=== PATIENT | male | born 1965 | race Caucasian/White ===

== ENCOUNTER 2017-11-21 10:13 | Emergency (ER) | payer OTHER ==
[2017-11-21 10:21] VITALS: BP 142/85; PULSE 99; TEMP 99.3; BMI 29.7
[2017-11-21] MEDS ORDERED: IBUPROFEN 400 MG TABLET (FP) PO ONE (10:54)
[2017-11-21] MEDS ORDERED: ALBUTEROL SO4 0.083% IH SOL 2.5 MG/3 ML VIAL.NEB. NEB ONE (10:54)
--- NOTE | 2017-11-21 11:14 | PDOC ---
History of Present Illness - General Chief Complaint: Cold Symptoms Stated Complaint: FEVER Time Seen by Provider: 11/21/17 10:37 History Source: Reflexologist Used ([employer] [id number]) Exam Limitations: Language Barrier - History of Present Illness Initial Comments: 11/21/17 11:08 52 yr male with cough fever for 4 days [place] from [place]. Pt states body aches neg nvd, increased thirst and increased urination. Pt has NIDDM taking his medications. no sick contacts works as a sales route driver helper. japanese interpreter used. 11/21/17 11:16 Severity: reports: mild Past History - Past Medical History Allergies/Adverse Reactions: Allergies Allergy/AdvReac Type Severity Reaction Status Date / Time No Known Drug Allergies Allergy Verified 11/21/17 11:48 plasma Allergy Uncoded 11/21/17 10:17 Home Medications: Ambulatory Orders Metformin HCl 500 mg PO BID 02/08/16 Albuterol Sulfate Inhaler - [Ventolin HFA Inhaler -] 1 - 2 inh PO Q4H #1 inhaler 11/21/17 COPD: No DVT: No Diabetes: Yes HTN: Yes Hypercholesterolemia: Yes - Surgical History Cholecystectomy: Yes - Immunization History Immunization Up to Date: Yes - Suicide/Smoking/Psychosocial Hx Smoking History: Never smoked Have you smoked in the past 12 months: No Information on smoking cessation initiated: No Hx Alcohol Use: No Drug/Substance Use Hx: No Substance Use Type: None Respiratory Specific PMHX - Complaint Specific PMHX Angina: No Bronchitis: No Pneumonia: No Pulmonary Embolus: No TB (Tuberculosis): No Review of Systems - Review of Systems Able to Perform ROS?: Yes Is the patient limited Bolivian proficient: No Constitutional: Yes: Symptoms Reported, Fever Respiratory: Yes: Cough : Yes: Frequency Musculoskeletal: No: Symptoms Reported Integumentary: No: Symptoms Reported Neurological: No: Symptoms reported *Physical Exam - Vital Signs Last Vital Signs Temp Pulse Resp BP Pulse Ox 99.3 F 99 H 18 142/85 100 11/21/17 10:18 11/21/17 10:18 11/21/17 10:18 11/21/17 10:18 11/21/17 10:18 - Physical Exam General Appearance: Yes: Nourished, Appropriately Dressed HEENT: positive: EOMI, CADY, Normal ENT Inspection, TMs Normal, Pharynx Normal Neck: positive: Supple. negative: Tender, Lymphadenopathy (R), Lymphadenopathy (L) Respiratory/Chest: positive: Lungs Clear, Normal Breath Sounds, Rhonchi, Wheezing (exp ). negative: Chest Tender Gastrointestinal/Abdominal: positive: Normal Bowel Sounds, Soft Musculoskeletal: positive: Normal Inspection Extremity: positive: Normal Capillary Refill, Normal Inspection, Normal Range of Motion Integumentary: positive: Normal Color, Dry, Warm Neurologic: positive: Fully Oriented, Alert, Normal Mood/Affect, Normal Response , Motor Strength 03/06 ED Treatment Course - RADIOLOGY Radiology Studies Ordered: Category Date Time Status CHEST PA & LAT [RAD] Stat Radiology 11/21/17 10:54 Ordered Medical Decision Making - Medical Decision Making 11/21/17 11:10 cc: cough fever body aches 4 days [place]illin from [place] c/o fever will check flu swab CXR 11/21/17 11:20 11/21/17 11:38 flu is negative CXR is negative will give albuterol inhaler pt is already on day 3 of ampicillin most likely viral bronchitis *DC/Admit/Observation/Transfer Diagnosis at time of Disposition: Bronchitis - Discharge Dispostion Disposition: HOME Condition at time of disposition: Good - Prescriptions Prescriptions: Albuterol Sulfate Inhaler - [Ventolin HFA Inhaler -] 1 - 2 inh PO Q4H #1 inhaler - Referrals Referrals: Kofi Etienne MD [Primary Care Provider] - - Patient Instructions Additional Instructions: use the inhaler as prescribed take ibuprofen as directed for fever or body aches drink pleanty of fluids and increase vitamin C and zinc in your diet follow with your doctor for follow up this week use el inhalador segn lo prescrito randolph ibuprofeno segn lo indicado para la fiebre o nabor en el cuerpo Shavonne abundante cantidad de lquidos y aumente la vitamina C y el zinc en de la cruz dieta siga con de la cruz mdico para el seguimiento esta semana usted no tiene neumona o gripe, es muy probable que tenga tiki bronquitis viral que necesita un inhalador de albuterol Print Language: INDONESIAN - Post Discharge Activity
== END 2017-11-21 12:29 | disposition home or self-care (01) ==
LOC: JERFT 10:13
PROC: 3E0F7GC Introduction of Other Therapeutic Substance into Respiratory Tract, Via Natural or Artificial Opening (ICD-10-PCS; principal; 2017-11-21)
DX: J40 Bronchitis, not specified as acute or chronic (principal); I10 Essential (primary) hypertension; E78.00 Pure hypercholesterolemia, unspecified; E11.9 Type 2 diabetes mellitus without complications; Z79.84 Long term (current) use of oral hypoglycemic drugs
CPT/HCPCS: 71046-TC; 82962; 87804; 94640; 99281-25

== ENCOUNTER 2018-04-19 06:13 | Emergency (ER) | payer OTHER ==
[2018-04-19 06:59] VITALS: PULSE 75; TEMP 97.6; BMI 28.5
[2018-04-19] MEDS ORDERED: SODIUM CHLORIDE 0.9% 1000 ML INFUS.BAG IV ONE (07:18)
[2018-04-19] MEDS ORDERED: ONDANSETRON 4 MG/2 ML VIAL IVPUSH ONE (07:18)
[2018-04-19] MEDS ORDERED: morphine CARPU-JECT 4 MG/1 ML DISP.SYRIN IVPUSH ONE (07:18)
--- NOTE | 2018-04-19 07:18 | PDOC ---
Attending Attestation - HPI HPI: 04/19/18 08:44 The patient is a 53 year old male with a significant PMH of DM and asthma who presents to the emergency department with left lower quadrant abdominal pain for 4 hours. The patient reports that he woke up this morning at about 4 am experiencing severe non- radiating lower left quadrant abdominal pain. The patient states that he has never had pain like this in the past. The patient also reports associated nausea and vomiting. The patient denies any history of a colonoscopy. He denies fever, chills, diarrhea, constipation or urinary symptoms. He denies any chest pain, shortness of breath, headache and dizziness.The patient denies any other complaints. PCP: Griselda Kraus [place] Documentation prepared by Isabel Naik, acting as neuropsychology medical consultant for Kieran Au MD. - Physicial Exam PE: 04/19/18 08:44 Vitals: Triage vital signs reviewed General Appearance: No acute distress, well nourished, well developed Head: Atraumatic Chest Wall: Nontender Cardiac: Regular rate and rhythm, no murmurs, no rubs, no gallops Lungs: Clear to auscultation bilateral, good air movement bilaterally Abdomen:(+)10/10 LLQ pain. Soft, nondistended, normal bowel sounds, nontender to palpation Genitourinary: Rectal: Exam deferred Extremities: Full range of motion to all extremities, no cyanosis, clubbing, or edema Skin: Warm and dry, no rashes or lesions, no rash, no petechiae Psych: Normal mood, normal affect - Medical Decision Making 04/19/18 08:44 The patient is a 53 year old male with a significant PMH of DM and asthma who presents to the emergency department with left lower quadrant abdominal pain for 4 hours. The patient will get medication for his pain, fluids, and a CT. <Isabel Naik - Last Filed: 04/19/18 08:44> - Resident Resident Name: Dontrell Herring - ED Attending Attestation I have performed the following: I have examined & evaluated the patient, The case was reviewed & discussed with the resident, I agree w/resident's findings & plan, Exceptions are as noted - Medical Decision Making Left lower quadrant abdominal pain. We'll check labs hydrate pain medication CAT scan of the pelvis observed and reassessed Reevaluation no acute findings on CT mild hematuria patient's repeat abdominal exam benign tenderness has resolved Most likely history examination consistent with passed renal stone strict abdominal pain return instructions discussed patient's patient provided with urology follow-up Findings, follow-up and strict return instructions discussed with patient. <Kieran Au - Last Filed: 04/19/18 15:27>
--- NOTE | 2018-04-19 07:30 | PDOC ---
History of Present Illness - General History Source: Patient - History of Present Illness Travel History: No Initial Comments: 04/19/18 07:22 53 year old male with a hx of DM and asthma presents to the hospital for left lower quadrant abdominal pain of several hour duration. He states that he woke up at 4am with severe non-radiating LLQ abdoinal pain 10/10 in severity. He has never experienced this pain before. Reports associated non-bloody/non-bilious nausea/vomiting. Patient has never had a colonoscopy. Denies diarrhea, states that his stools are solid. Denies chest pain, shortness of breath, fevers, chills. Allergies: none Smoking: none Alcohol: none Drugs: none PCP: Griselda Hernandez Timing/Duration: reports: constant Quality: reports: severe Abdominal Pain Onset Location: reports: LLQ <Dontrell Herring - Last Filed: 04/19/18 07:34> <Kieran Au - Last Filed: 04/19/18 12:25> - General Chief Complaint: Pain Stated Complaint: STOMACH PAIN Time Seen by Provider: 04/19/18 07:10 Past History - Past Medical History COPD: No DVT: No Diabetes: Yes HTN: Yes Hypercholesterolemia: Yes - Surgical History Cholecystectomy: Yes - Immunization History Immunization Up to Date: Yes - Suicide/Smoking/Psychosocial Hx Smoking History: Never smoked Have you smoked in the past 12 months: No Information on smoking cessation initiated: No Hx Alcohol Use: No Drug/Substance Use Hx: No Substance Use Type: None <Dontrell Herring - Last Filed: 04/19/18 07:34> <Kieran Au - Last Filed: 04/19/18 12:25> - Past Medical History Allergies/Adverse Reactions: Allergies Allergy/AdvReac Type Severity Reaction Status Date / Time No Known Allergies Allergy Verified 04/19/18 07:01 Home Medications: Ambulatory Orders metFORMIN HCL [Metformin HCl] 500 mg PO BID 02/08/16 Review of Systems - Review of Systems Able to Perform ROS?: Yes Is the patient limited Moroccan proficient: Yes Constitutional: No: Fever Respiratory: No: Cough, Shortness of Breath, Wheezing Cardiac (ROS): No: Chest Pain, Irregular Heart Rate, Chest Tightness ABD/GI: Yes: Symptoms Reported, Vomiting. No: Diarrhea, Nausea, Rectal Bleeding : No: Dysuria <CharleethomasDontrell - Last Filed: 04/19/18 07:34> *Physical Exam - Vital Signs Last Vital Signs Temp Pulse Resp BP Pulse Ox 97.6 F 75 19 110/69 100 04/19/18 06:56 04/19/18 06:56 04/19/18 06:56 04/19/18 06:56 04/19/18 06:56 - Physical Exam Comments: 04/19/18 07:32 GENERAL: A&Ox3, no acute distress EYES: PERRLA, EOMI ENT: Moist mucus membranes NECK: No JVD LUNGS: CTA, no wheezes HEART: RRR, no murmurs ABDOMEN: Soft, mild tenderness to palpation noted, BS present MUSCULOSKELETAL: No CVA Tenderness EXTREMITIES: 2+ pulses, no edema. NEUROLOGICAL: Cranial nerves II-XII intact. <CharleethomasDontrell - Last Filed: 04/19/18 07:34> - Vital Signs Last Vital Signs Temp Pulse Resp BP Pulse Ox 97.6 F 75 19 110/69 100 04/19/18 06:56 04/19/18 06:56 04/19/18 06:56 04/19/18 06:56 04/19/18 06:56 <Kieran Au - Last Filed: 04/19/18 12:25> ED Treatment Course - LABORATORY CBC & Chemistry Diagram: 04/19/18 08:00 04/19/18 08:00 - ADDITIONAL ORDERS Additional order review: Laboratory Results 04/19/18 04/19/18 08:44 08:00 Sodium 133 L Potassium 5.6 H D Chloride 101 Carbon Dioxide 24 Anion Gap 8 BUN 17 D Creatinine 1.1 Creat Clearance w eGFR > 60 Random Glucose 264 H D Calcium 9.0 Total Bilirubin 0.5 AST 43 H D ALT 80 H D Alkaline Phosphatase 205 H D Total Protein 7.5 Albumin 3.8 Urine Color Yellow Urine Appearance Clear Urine pH 5.0 Ur Specific Wellman 1.029 Urine Protein Negative Urine Glucose (UA) 3+ H Urine Ketones Trace H Urine Blood 3+ H Urine Nitrite Negative Urine Bilirubin Negative Urine Urobilinogen Negative Ur Leukocyte Esterase Negative Urine WBC (Auto) 2 Urine RBC (Auto) 181 Urine Mucus Rare 04/19/18 08:00 RBC 5.29 MCV 88.2 MCHC 34.2 RDW 13.1 MPV 9.9 Neutrophils % 62.5 Lymphocytes % 31.1 D Monocytes % 5.4 Eosinophils % 0.4 Basophils % 0.6 - RADIOLOGY Radiology Studies Ordered: Category Date Time Status ABDOMEN & PELVIS CT WITH CONTR [CT] Stat CT Scan 04/19/18 07:19 Completed - Medications Given in the ED: ED Medications Discontinued Medications Generic Name Dose Route Start Last Admin Trade Name Katie PRN Reason Stop Dose Admin Morphine Sulfate 4 mg 04/19/18 07:18 04/19/18 08:40 Morphine Injection - IVPUSH 04/19/18 07:19 4 mg ONCE ONE Administration Ondansetron HCl 4 mg 04/19/18 07:18 04/19/18 08:41 Zofran Injection IVPUSH 04/19/18 07:19 4 mg ONCE ONE Administration Sodium Chloride 2,000 ml 04/19/18 07:18 04/19/18 08:41 Normal Saline - IV 04/19/18 07:19 2,000 ml ONCE ONE Administration <Kieran Au - Last Filed: 04/19/18 12:25> Medical Decision Making - Medical Decision Making 04/19/18 07:32 53 yo male with a hx of DM and asthma presented for acute onset LLQ abdominal pain and vomiting DDx: diverticulitis, colitis, hernia, gastroenteritis -CBC -CMP -UA -CT abd/pelvis w/ IV contrast -1L NS bolus -zofran -morphine 4mg for pain -will re-evaluate <Dontrell Herring - Last Filed: 04/19/18 07:34> *DC/Admit/Observation/Transfer <Dontrell Herring - Last Filed: 04/19/18 07:34> - Discharge Dispostion Decision to Admit order: No <Kieran Au - Last Filed: 04/19/18 12:25> Diagnosis at time of Disposition: Abdominal pain Qualifiers: Abdominal location: left lower quadrant Qualified Code(s): R10.32 - Left lower quadrant pain - Discharge Dispostion Condition at time of disposition: Fair - Referrals Referrals: Gustavo Hoyt MD [Staff Physician] - - Patient Instructions Printed Discharge Instructions: DI for Abdominal Pain-Adult Additional Instructions: Your CAT scan did not show any serious surgical issues.There was blood in her urine and he may have passed a kidney stone. Please follow-up with urology this week. Drink plenty of fluids. Return to the emergency Department for severe worsening symptoms or for any concerns.
[2018-04-19] MEDS ORDERED: MORPHINE SULFATE 2 MG/ML VIAL ONE (08:15)
[2018-04-19] MEDS ORDERED: ONDANSETRON 4 MG/2 ML VIAL ONE (08:16)
[2018-04-19 08:17] LABS: BASO % 0.6 % (0-2.0); EOS % 0.4 % (0-4.5); HEMATOCRIT 46.6 % (35.4-49); HEMOGLOBIN 15.9 GM/dL (11.7-16.9); LYMPH % 31.1 % (8-40); MCH 30.2 pg (25.7-33.7); MCHC 34.2 g/dl (32.0-35.9); MEAN CELL VOLUME 88.2 fl (80-96); MEAN PLT VOLUME 9.9 fl (7.5-11.1); MONO % 5.4 % (3.8-10.2); NEUT % 62.5 % (42.8-82.8); PLATELET COUNT 216 K/MM3 (134-434); RBC 5.29 M/mm3 (4.00-5.60); RDW 13.1 % (11.9-15.9); WHITE BLOOD COUNT 6.6 K/mm3 (4.0-10.0)
[2018-04-19 08:53] LABS: URINE APPEARANCE CLEAR; URINE BILIRUBIN NEGATIVE (<2.0 mg/dL); URINE COLOR YELLOW; URINE GLUCOSE (UA) 3+ (NEGATIVE); URINE KETONE TRACE (NEGATIVE); URINE LEUK ESTERASE NEGATIVE (NEGATIVE); URINE NITRITE NEGATIVE (NEGATIVE); URINE PROTEIN NEGATIVE (NEGATIVE); URINE UROBILINOGEN NEGATIVE mg/dL (0.2-1.0)
[2018-04-19 09:03] LABS: ALBUMIN 3.8 g/dl (3.4-5.0); ALK PHOS 205 U/L (45-117); ANION GAP 8 (8-16); BILIRUBIN,TOTAL 0.5 mg/dL (0.2-1.0); BLOOD UREA NITROGEN 17 mg/dL (7-18); CHLORIDE 101 mmol/L (98-107); CO2 24 mmol/L (21-32); CREATININE 1.1 mg/dL (0.7-1.3); GLUCOSE,RANDOM 264 mg/dL (74-106); SGPT/ALT 80 U/L (12-78); SODIUM 133 mmol/L (136-145); TOT PROT 7.5 g/dl (6.4-8.2)
[2018-04-19 09:16] LABS: POTASSIUM 5.6 mmol/L (3.5-5.1); SGOT/AST 43 U/L (15-37)
[2018-04-19 09:23] LABS: URINE MUCUS RARE
[2018-04-19 12:32] VITALS: BP 122/75
== END 2018-04-19 13:14 | disposition home or self-care (01) ==
LOC: JER 06:13
PROC: 3E033GC Introduction of Other Therapeutic Substance into Peripheral Vein, Percutaneous Approach (ICD-10-PCS; principal; 2018-04-19)
PROC: 3E033NZ Introduction of Analgesics, Hypnotics, Sedatives into Peripheral Vein, Percutaneous Approach (ICD-10-PCS; 2018-04-19)
DX: R10.32 Left lower quadrant pain (principal); I10 Essential (primary) hypertension; E78.00 Pure hypercholesterolemia, unspecified; E11.9 Type 2 diabetes mellitus without complications; J45.909 Unspecified asthma, uncomplicated; Z79.84 Long term (current) use of oral hypoglycemic drugs
CPT/HCPCS: 36415; 74177-TC; 80053; 81003; 81015; 85025; 96374; 96375; 99284-25; J7030

== ENCOUNTER 2018-12-14 09:38 | Emergency (ER) | payer OTHER ==
[2018-12-14 09:53] VITALS: BP 141/90; PULSE 89; TEMP 98.3; BMI 30.2
--- NOTE | 2018-12-14 11:21 | PDOC ---
History of Present Illness - General Chief Complaint: Eye Problem Stated Complaint: EYE PAIN Time Seen by Provider: 12/14/18 10:49 History Source: Patient Exam Limitations: Language Barrier (telephone language line used for history physical and discharge planning) - History of Present Illness Initial Comments: 12/14/18 11:22 Patient complains of twitching to his left eyelid that started yesterday that was "annoying him". Denies trauma, denies any discharge, denies any visual changes. Is diabetic but states blood sugars are well-controlled and he checks them daily. No other muscle fasciculations Timing/Duration: unsure Severity: mild Associated Symptoms: reports: denies symptoms Past History - Travel Traveled outside of the country in the last 30 days: No Close contact w/someone who was outside of country & ill: No - Past Medical History Allergies/Adverse Reactions: Allergies Allergy/AdvReac Type Severity Reaction Status Date / Time No Known Allergies Allergy Verified 12/14/18 09:50 Home Medications: Ambulatory Orders metFORMIN HCL [Metformin HCl] 500 mg PO BID 02/08/16 COPD: No DVT: No Diabetes: Yes HTN: Yes Hypercholesterolemia: Yes - Surgical History Cholecystectomy: Yes - Immunization History Immunization Up to Date: Yes - Suicide/Smoking/Psychosocial Hx Smoking History: Never smoked Have you smoked in the past 12 months: No Hx Alcohol Use: No Drug/Substance Use Hx: No Substance Use Type: None Review of Systems - Review of Systems Able to Perform ROS?: Yes Is the patient limited Czech proficient: Yes Constitutional: Yes: Symptoms Reported, See HPI. No: Chills, Fever, Loss of Appetite, Malaise HEENTM: Yes: Symptoms Reported, See HPI, Other (states left eyelid is been twitching on and off since yesterday evening). No: Eye Pain, Blurred Vision, Tearing, Recent change in vision, Double Vision Respiratory: Yes: See HPI. No: Symptoms reported, Cough Cardiac (ROS): No: Symptoms Reported ABD/GI: No: Symptoms Reported Musculoskeletal: Yes: See HPI. No: Symptoms Reported, Back Pain, Muscle Pain, Muscle Weakness Integumentary: No: Symptoms Reported All Other Systems: Reviewed and Negative *Physical Exam - Vital Signs Last Vital Signs Temp Pulse Resp BP Pulse Ox 98.3 F 89 19 141/90 96 12/14/18 09:50 12/14/18 09:50 12/14/18 09:50 12/14/18 09:50 12/14/18 09:50 - Physical Exam General Appearance: Yes: Nourished, Appropriately Dressed HEENT: positive: CADY, Normal ENT Inspection, Normal Voice, Symmetrical, TMs Normal, Pharynx Normal Neck: positive: Supple. negative: Tender, Lymphadenopathy (R) Respiratory/Chest: positive: Lungs Clear Gastrointestinal/Abdominal: positive: Tender, Soft. negative: Normal Bowel Sounds Extremity: positive: Normal Capillary Refill, Normal Inspection, Normal Range of Motion Integumentary: positive: Normal Color, Dry, Warm Neurologic: positive: executive officer II-XII NML intact, Fully Oriented, Alert, Normal Mood/ Affect, Normal Response, Motor Strength 5/5 Moderate Sedation - Procedure Monitoring Vital Signs: Procedure Monitoring Vital Signs Temperature 98.3 F 12/14/18 09:50 Pulse Rate 89 12/14/18 09:50 Respiratory Rate 12/14/18 09:50 Blood Pressure 141/90 12/14/18 09:50 O2 Sat by Pulse Oximetry (%) 96 12/14/18 09:50 *DC/Admit/Observation/Transfer Diagnosis at time of Disposition: Eye muscle twitches - Discharge Dispostion Disposition: HOME Condition at time of disposition: Stable Decision to Admit order: No - Referrals Referrals: Namita Bautista MD [Primary Care Provider] - - Patient Instructions Printed Discharge Instructions: DI for Eye Pain - Post Discharge Activity
== END 2018-12-14 11:31 | disposition home or self-care (01) ==
LOC: JERFT 09:38
DX: H02.89 Other specified disorders of eyelid (principal); G25.89 Other specified extrapyramidal and movement disorders; I10 Essential (primary) hypertension; E78.00 Pure hypercholesterolemia, unspecified; E11.9 Type 2 diabetes mellitus without complications; Z79.84 Long term (current) use of oral hypoglycemic drugs
CPT/HCPCS: 99281-25

== ENCOUNTER 2020-10-05 10:57 | Emergency (ER) | payer OTHER ==
[2020-10-05 11:37] VITALS: BMI 29.7
[2020-10-05] MEDS ORDERED: ACETAMINOPHEN 500 MG TABLET (FP) PO ONE (11:54)
[2020-10-05] MEDS ORDERED: ACETAMINOPHEN 325 MG TABLET (FP) PO ONE (12:48)
[2020-10-05] MEDS ORDERED: ACETAMINOPHEN 325 MG TABLET (FP) ONE (13:21)
[2020-10-05 14:07] LABS: BASO % 0.3 % (0-2.0); EOS % 0.2 % (0-4.5); HEMATOCRIT 43.7 % (35.4-49); HEMOGLOBIN 14.5 GM/dL (11.7-16.9); LYMPH % 32.5 % (8-40); MCH 29.5 pg (25.7-33.7); MCHC 33.1 g/dl (32.0-35.9); MEAN CELL VOLUME 89.1 fl (80-96); MEAN PLT VOLUME 9.1 fl (7.5-11.1); MONO % 10.9 % (3.8-10.2); NEUT % 56.1 % (42.8-82.8); PLATELET COUNT 151 K/MM3 (134-434); RDW 13.1 % (11.9-15.9); WHITE BLOOD COUNT 3.9 K/mm3 (4.0-10.0)
[2020-10-05 14:15] LABS: INR 1.15 (0.83-1.09); PROTHROMBIN TIME (PATIENT) 13.9 SEC (9.7-13.0)
[2020-10-05 14:18] LABS: ACTIVATED PTT 30.3 SECONDS (25.2-36.5)
[2020-10-05 14:21] LABS: CHLORIDE 99 mmol/L (98-107); POTASSIUM 4.5 mmol/L (3.5-5.1); SODIUM 136 mmol/L (136-145)
[2020-10-05 14:24] LABS: ALBUMIN 3.7 g/dl (3.4-5.0); ANION GAP 8 MMOL/L (8-16); CALCIUM 8.6 mg/dL (8.5-10.1); CO2 28 mmol/L (21-32)
[2020-10-05 14:25] LABS: BLOOD UREA NITROGEN 10.7 mg/dL (7-18); GLUCOSE,RANDOM 197 mg/dL (74-106); MAGNESIUM 1.9 mg/dL (1.8-2.4)
[2020-10-05 14:26] LABS: SGPT/ALT 90 U/L (13-61)
[2020-10-05 14:27] LABS: SGOT/AST 48 U/L (15-37)
[2020-10-05 14:28] LABS: BILIRUBIN,TOTAL 0.6 mg/dL (0.2-1); TOT PROT 7.2 g/dl (6.4-8.2)
[2020-10-05 14:29] LABS: ALK PHOS 130 U/L (45-117); LDH 137 U/L (87-246)
[2020-10-05 14:32] LABS: N-TERMINAL BNP 34.2 pg/ml (5-125)
[2020-10-05] MEDS ORDERED: SODIUM CHLORIDE 1,000 ML IV ONE (14:57)
[2020-10-05 16:46] VITALS: BP 100/61; PULSE 88; TEMP 98.9
== END 2020-10-05 16:51 | disposition home or self-care (01) ==
LOC: JER 10:57
PROC: 3E0337Z Introduction of Electrolytic and Water Balance Substance into Peripheral Vein, Percutaneous Approach (ICD-10-PCS; principal; 2020-10-05)
DX: B34.9 Viral infection, unspecified (principal)
CPT/HCPCS: 36415; 71045-TC-FY; 80053; 82550; 82728; 83605; 83615; 83735; 83880; 84484; 85025; 85379; 85384; 85610; 85730; 87804; 93005; 93010; 99284-25; C9803; U0003

== ENCOUNTER 2023-10-29 06:54 | Emergency (ER) | payer OTHER ==
[2023-10-29 07:09] VITALS: BP 101/65; RESP 18; BMI 28.8
[2023-10-29] MEDS ORDERED: ACETAMINOPHEN 1000 MG/100 ML BAG IVPB ONE (07:53)
[2023-10-29] MEDS ORDERED: SODIUM CHLORIDE 1,000 ML IV STA (07:53)
[2023-10-29] MEDS ORDERED: ACETAMINOPHEN INJECTION 100 ML IVPB ONE (07:58)
[2023-10-29 08:07] LABS: BASO % 0.5 % (0-2.0); EOS % 0.6 % (0-4.5); HEMATOCRIT 44.6 % (35.4-49); HEMOGLOBIN 15.1 GM/dL (11.7-16.9); LYMPH % 16.6 % (8-40); MCH 30.2 pg (25.7-33.7); MCHC 33.8 g/dl (32.0-35.9); MEAN CELL VOLUME 89.5 fl (80-96); MEAN PLT VOLUME 8.7 fl (7.5-11.1); MONO % 8.5 % (3.8-10.2); NEUT % 73.8 % (42.8-82.8); PLATELET COUNT 204 10^3/uL (134-434); RBC 4.99 M/mm3 (4.00-5.60); RDW 13.6 % (11.9-15.9); WHITE BLOOD COUNT 9.7 K/mm3 (4.0-10.0)
[2023-10-29 08:22] LABS: POTASSIUM 4.2 mmol/L (3.5-5.1)
[2023-10-29 08:24] LABS: ALBUMIN 3.4 g/dl (3.4-5.0); BLOOD UREA NITROGEN 18.6 mg/dL (7-18); CALCIUM 8.8 mg/dL (8.5-10.1)
[2023-10-29 08:26] LABS: CREATININE 1.2 mg/dL (0.55-1.3)
[2023-10-29 08:27] LABS: EPI CELLS 6 /uL (0-25.1); HYALINE CASTS 0 /uL (0-3.1); PH,URINE 5.5 (5.0-8.0); URINE APPEARANCE CLEAR; URINE BACTERIA 7 /uL (0-1359); URINE BILIRUBIN NEGATIVE (NEGATIVE); URINE COLOR YELLOW; URINE GLUCOSE (UA) 3+ (NEGATIVE); URINE KETONE 1+ (NEGATIVE); URINE LEUK ESTERASE NEGATIVE (NEGATIVE); URINE NITRITE NEGATIVE (NEGATIVE); URINE PROTEIN 1+ (NEGATIVE); URINE RBC 12 /uL (0-23.9); URINE WBC 29 /uL (0-25.8)
[2023-10-29 08:28] LABS: BILIRUBIN,TOTAL 0.8 mg/dL (0.2-1); TOT PROT 7.1 g/dl (6.4-8.2)
[2023-10-29 08:29] LABS: INR 1.11 (0.83-1.09); PROTHROMBIN TIME (PATIENT) 12.9 SEC (9.7-13.0)
[2023-10-29 08:32] LABS: ACTIVATED PTT 27.4 SECONDS (25.2-36.5)
[2023-10-29] MEDS ORDERED: CEPHALEXIN MONOHYDRATE 500 MG CAPSULE (UD) PO ONE (11:12)
[2023-10-29 11:28] VITALS: PULSE 92; TEMP 98.6
[2023-10-29] MEDS ORDERED: CEPHALEXIN MONOHYDRATE 500 MG CAPSULE (UD) ONE (11:38)
== END 2023-10-29 12:00 | disposition home or self-care (01) ==
LOC: JER 06:54
PROC: 3E033NZ Introduction of Analgesics, Hypnotics, Sedatives into Peripheral Vein, Percutaneous Approach (ICD-10-PCS; principal; 2023-10-29)
PROC: 3E0337Z Introduction of Electrolytic and Water Balance Substance into Peripheral Vein, Percutaneous Approach (ICD-10-PCS; 2023-10-29)
DX: R50.9 Fever, unspecified (principal); R10.9 Unspecified abdominal pain; N39.0 Urinary tract infection, site not specified
CPT/HCPCS: 36415; 74176-TC; 80053; 81003; 85025; 85610; 85730; 87086; 99284-25